=== PATIENT | female | born 1965 | race Caucasian/White ===

== ENCOUNTER → 2020-09-01 | Outpatient (CLI) | payer OTHER ==
[~2020-09-01] MED LIST: ASCO100018 PO; CALC500T93 PO; CHOL10003 PO; LACT1CAP47 PO; MULT-449 PO; POTA99TA19 PO
[2020-09-01 12:11] LABS: BASOPHILS % (AUTO) 0 % (0-1); EOSINOPHILS % (AUTO) 1 % (1-7); LYMPHOCYTES % (AUTO) 26 % (22-44); MEAN CORPUSCULAR HEMOGLOBIN 28.9 pg (27.0-34.8); MEAN CORPUSCULAR HGB CONC 33.8 g/dL (32.4-35.8); MEAN PLATELET VOLUME 8.2 fL (7.4-10.4); MONOCYTES % (AUTO) 7 % (2-9); NEUTROPHILS % (AUTO) 66 % (42-75); PLATELET COUNT 305 x10^3/uL (130-400); RED BLOOD COUNT 5.49 x10^6/uL (3.82-5.3); RED CELL DISTRIBUTION WIDTH 14.1 % (9.6-15.2)
[2020-09-01 12:13] LABS: MICROSCOPIC INDICATED
[2020-09-01 12:19] LABS: ANION GAP 4 mmol/L (5-15); CALCIUM 9.4 mg/dL (8.5-10.1); CHLORIDE 106 mmol/L (98-107); CREATININE 0.74 mg/dL (0.55-1.02)
== END | disposition home or self-care (01) ==
LOC: STAR 10:54
PROVIDERS: ATTEND Obstetrics & Gynecology
DX: Z01.818 Encounter for other preprocedural examination (principal); N84.0 Polyp of corpus uteri
CPT/HCPCS: 36415; 71046; 80048; 81001; 84702; 85025; 87077; 87086; 87186; 93005

== ENCOUNTER 2020-09-07 12:49 | Day surgery (SDC) | payer OTHER ==
[~2020-09-07] VITALS: Ht 157.5 cm; Wt 92.7 kg
[2020-09-07] MEDS ORDERED: LACTATED RINGERS 1,000 ML IV SCH (13:30)
[2020-09-07] MEDS ORDERED: CHLORHEXIDINE 15 ML UDC PO ONE (13:30)
[2020-09-07] MEDS ORDERED: CHLORHEXIDINE 15 ML UDC ONE (13:33)
[2020-09-07 13:36] VITALS: BP 135/95
[2020-09-07] MEDS ORDERED: SILVER NITRATE STICK TP ONE (14:06)
[2020-09-07] MEDS ORDERED: BUPIVACAINE/PF 0.25% ONE (14:06)
[2020-09-07] MEDS ORDERED: EPINEPHRINE 1 MG/ML, 1ML ONE (14:06)
[2020-09-07] MEDS ORDERED: VASOPRESSIN 20 UNIT/ML, 1ML ONE (14:07)
[2020-09-07] MEDS ORDERED: SODIUM CHLORIDE 0.9% 100 ML ONE (14:14)
[2020-09-07] MEDS ORDERED: MIDAZOLAM 1 MG/ML, 2ML ONE (15:08)
[2020-09-07] MEDS ORDERED: KETOROLAC 30 MG/1 ML ONE (15:14)
[2020-09-07] MEDS ORDERED: PROPOFOL 10 MG/ML, 20ML ONE (15:14)
[2020-09-07] MEDS ORDERED: ROCURONIUM 10MG/ML,5ML ONE (15:14)
[2020-09-07] MEDS ORDERED: CEFAZOLIN 1,000 MG ONE (15:14)
[2020-09-07] MEDS ORDERED: SUCCINYLCHOLINE 20 MG/ML, 10ML ONE (15:14)
[2020-09-07] MEDS ORDERED: KETOROLAC 30 MG/1 ML IV PRN (16:00)
[2020-09-07] MEDS ORDERED: LABETALOL 5MG/ML, 20ML IV PRN (16:00)
[2020-09-07] MEDS ORDERED: PROMETHAZINE 25 MG/ML, 1ML IV PRN (16:00)
[2020-09-07] MEDS ORDERED: ALBUTEROL SULFATE 2.5 MG/3 ML NPPB PRN (16:00)
[2020-09-07] MEDS ORDERED: HYDROmorphone 1 MG/ML, 1ML INJ IV PRN (16:00)
[2020-09-07] MEDS ORDERED: METOCLOPRAMIDE 5 MG/ML, 2ML IV PRN (16:00)
[2020-09-07] MEDS ORDERED: FENTANYL PF 100 MCG/2ML IV PRN (16:00)
[2020-09-07] MEDS ORDERED: DIAZEPAM 5 MG/ML, 2ML IV PRN ×2 (16:00)
[2020-09-07] MEDS ORDERED: ONDANSETRON 2MG/ML, 2ML IVPush PRN (16:00)
[2020-09-07] MEDS ORDERED: OXYcodone 5 MG/5 ML ORAL.SOL UDC PO PRN (16:00)
[2020-09-07] MEDS ORDERED: MEPERIDINE/PF 25MG/0.5ML IVPush PRN (16:00)
[2020-09-07] MEDS ORDERED: hydrALAzine 20 MG/ML, 1ML IV PRN (16:00)
[2020-09-07] MEDS ORDERED: ACETAMINOPHEN 650 MG/20.3 ML UDC ONE (16:07)
[2020-09-07] MEDS ORDERED: ACETAMINOPHEN 650 MG/20.3 ML UDC PO PRN (16:30)
== END 2020-09-07 17:20 | disposition home or self-care (01) ==
LOC: OUT 12:49
PROVIDERS: ATTEND Obstetrics & Gynecology
DX: N84.0 Polyp of corpus uteri (principal); N95.0 Postmenopausal bleeding; E66.3 Overweight; Z68.37 Body mass index [BMI] 37.0-37.9, adult; Z79.899 Other long term (current) drug therapy
CPT/HCPCS: 58558; 88305; J0171; J0330; J0690; J1885; J2250; J2704